=== PATIENT | female | born 1995 | race Caucasian/White ===

== ENCOUNTER 2018-10-16 22:13 | Emergency (ER) | payer MEDICAID, OTHER ==
[~2018-10-16] VITALS: Ht 152.4 cm; Wt 59.9 kg
[2018-10-16 22:21] VITALS: Ht 152.4 cm; Wt 59.9 kg
[2018-10-16] MEDS ORDERED: DIPHTH/TET/ACEL PERTUSS (ADULT) 0.5 ML VIAL IM* ONE (23:00)
[2018-10-16] MEDS ORDERED: AMOX1TAB10 PO (23:45)
--- NOTE | 2018-10-16 23:47 | ERD ---
ER Documentation Chief Complaint Chief Complaint cat bite to right 2nd finger x 1 hour HPI This is a 23-year-old female who presents with cat bite to the right second finger that occurred about an hour prior to arrival to the emergency room by her own cat. She now has some redness and swelling in the distal fingertip as well as some numbness and tingling. No loss of range of motion. Unsure about last tetanus vaccination. ROS All systems reviewed and are negative except as per history of present illness. Medications Home Meds Active Scripts Amoxicillin/Potassium Clav (Amox-Clav 875-125 mg Tablet) 875-125 mg Tab, 1 TAB PO BID for 10 Days, #20 TAB Prov:ZOYA JACOBSON PA-C 10/16/18 Allergies Allergies: Coded Allergies: No Known Drug Allergies (Verified Allergy, Unknown, 10/16/18) PMhx/Soc Medical and Surgical Hx: pt denies Medical Hx, pt denies Surgical Hx Hx Alcohol Use: No Hx Substance Use: No Hx Tobacco Use: No Smoking Status: Never smoker FmHx Family History: No diabetes Physical Exam Vitals Vital Signs Date Temp Pulse Resp B/P (MAP) Pulse Ox O2 O2 Flow FiO2 Time Delivery Rate 10/16/18 99.0 75 18 138/89 98 22:21 (105) Physical Exam Const: No acute distress Head: Atraumatic Eyes: Normal Conjunctiva ENT: Normal External Ears, Nose and Mouth. Neck: Full range of motion. No meningismus. Resp: Clear to auscultation bilaterally Cardio: Regular rate and rhythm, no murmurs Hand -right: Skin: Multiple small puncture wound superficial on the right distal second finger with mild erythema and soft tissue swelling Compartments: Soft Sensation: Intact shoulder/pinky/middle finger/thumb web space Bones: Nontender Snuffbox: Nontender Joints: No effusion Wrist: Flex/Ext: Normal Uln/Radial deviation: Normal Pron/Supination Normal Finger: Flex/Ext: Normal Add/abd: Normal Thumb: Flex/Ext: Normal Opposition: Normal Thumbs up: Normal Results 24 hrs Current Medications Medications Dose Sig/Fred Start Time Status Last (Trade) Ordered Route PRN Stop Time Admin Dose Reason Admin Diphtheria/ 0.5 ml ONCE ONCE 10/16/18 DC 10/16/18 Tetanus/Acell IM* 23:00 22:51 Pertussis 10/16/18 23:01 (Adacel) Procedures/MDM X-rays negative. Tetanus vaccination given. Discharged with Augmentin. Patient counseled regarding my diagnostic impression and care plan. Prior to discharge all questions answered. Pt agrees with treatment plan and understands strict return precautions. Pt is instructed to follow up with primary care provider within 24-48 hours. Precautionary instructions provided including instructions to return to the ER if not improving or for any worsening or changing symptoms or concerns. Departure Diagnosis: Primary Impression: Bite by animal Condition: Stable Patient Instructions: Animal Bite, General Additional Instructions: Call your primary care doctor TOMORROW for an appointment during the next 1-2 days.See the doctor sooner or return here if your condition worsens before your appointment time. ZOYA JACOBSON PA-C October 16, 2018 23:47
[2018-10-17] MEDS ORDERED: BACITRACIN/POLYMYXIN 0.9 GM OINT TOP ONE
[2018-10-17] MEDS ORDERED: BACITRACIN/POLYMYXIN 28.35 GM OINT TOP ONE
[2018-10-17] MEDS ORDERED: BACITRACIN 0.9 GM OINT ONE (00:09)
[2018-10-17] MEDS ORDERED: BACITRACIN 0.9 GM OINT TOP ONE (00:30)
[2018-10-17 00:36] VITALS: BP 111/68; PULSE 75; RESP 18
== END 2018-10-17 00:37 | disposition home or self-care (01) ==
LOC: FTE 22:13
DX: S61.230A Puncture wound without foreign body of right index finger without damage to nail, initial encounter (principal); W55.01XA Bitten by cat, initial encounter; Y92.9 Unspecified place or not applicable; Z23 Encounter for immunization
CPT/HCPCS: 73140; 90471; 90715; Z7502; Z7610